=== PATIENT | male | born 1955 | race Caucasian/White ===

== ENCOUNTER → 2021-03-20 02:58 | Outpatient (CLI) | payer MEDICARE, SELFPAY ==
[2021-03-20 20:27] LABS: SARS-CoV-2 RNA PCR Positive
== END ==
PROVIDERS: PCP Internal Medicine; Visit Provider Surgery
DX: U07.1 COVID-19 (principal); Z01.812 Encounter for preprocedural laboratory examination
CPT/HCPCS: C9803; U0003; U0005

== ENCOUNTER → 2021-07-14 00:37 | Outpatient (CLI) | payer MEDICARE, SELFPAY ==
[2021-07-14 21:23] LABS: SARS-CoV-2 RNA PCR Negative
== END ==
PROVIDERS: PCP Internal Medicine; Visit Provider Surgery
DX: Z01.812 Encounter for preprocedural laboratory examination (principal); Z20.822 Contact with and (suspected) exposure to COVID-19
CPT/HCPCS: C9803; U0003; U0005

== ENCOUNTER 2021-07-18 01:00 | Day surgery (SDC) | payer MEDICARE, SELFPAY ==
[2021-03-15 15:26] VITALS: BMI 38.7
--- NOTE | 2021-07-06 14:17 | PC.NURSE ---
Report to the Outpatient Waiting Room, entrance under the green pavilion located off [facility], at time __0600 on date 07/18/21 . OR Time: _729 . - You and your visitor will be asked a series of questions to screen for COVID 19 for your protection. - A mask is required within the hospital. Preoperative COVID Testing Requirements: No COVID Test needed if: (proof is required; if not received patient will have Rapid Test prior to entry) - Patient has received COVID Vaccine at least 14 days prior to procedure date or COVID TESTING 07/14/21 @ 0845 - Patient has positive COVID test result within last 90 days of surgery date. COVID Test needed if above criteria is not met If not COVID vaccinated a COVID test must be conducted within 72 hours of surgery and patient is asked to isolate self from time of testing until procedure. You will go to the [employer] [facility] for your COVID testing. The [employer] [facility] site is located at the corner of [address] [facility]. You will only be called if COVID results are positive and your surgeon may reschedule your elective surgery date. Patients may have clear liquids (water, carbonated beverages, clear teas, apple juice) until 3 hours prior to surgery with a maximum of 20 ounces. - No food from midnight until time of surgery - Infants may have breast milk until 4 hours before surgery, infant formula 6 hours prior to surgery. - Children will be allowed to drink immediately following surgery. If applicable, please bring a bottle or sippy cup to assist with drinking. Juice, water, soda, and popsicles are readily available. For infants on formula, please bring formula the day of surgery. Pacifiers are allowed. Take the following medications with a SIP of water the morning of surgery: ___LEVOTHYROXINE Medications to discontinue per physician NONE Date to take last dose Please no make-up, nail montenegrin, hairspray, perfume, deodorant, or body powder the day of surgery. No jewelry (including any body piercings) or valuables the day of surgery, leave them at home. Please take a shower or bath the night before, or the morning of, surgery with an antibacterial soap. Wear comfortable, loose fitting clothing. Children are encouraged to wear pajamas. - Jewelry must be removed prior to entering the operating room. Rings and piercings that are not removed may be cut off. - The hospital will not accept responsibility for valuables. - Please leave all valuables, including medications, at home the day of surgery. HIBICLENS SHOWER MORNING OF SURGERY If you are going home after surgery, a licensed restaurant delivery driver must drive you home. - NO public transportation without another adult. - We recommend that an adult stay with you for 24 hours following discharge. - We also recommend that you do not drive, make important decision, drink alcoholic beverages, or take any drugs that were not prescribed by your health care provider for at least 24 hours after your discharge time. For Pediatric surgeries, we recommend two adults accompany the child home (only one inside the building at this time). One visitor will be allowed to accompany the patient into the hospital. Patients visitor will be instructed to remain with patient at all times or leave the building. We will allow the visitor to come back to the postoperative area when patient is ready. Follow any additional instructions given to you from your surgeon. Telephone instructions given to __PATIENT and asked if any additional questions and then verbalized understanding. Patient advised to call surgeon office or pre surgery nurse liaison [phone] if any additional questions.
[2021-07-06 14:19] VITALS: BMI 37.1
--- NOTE | 2021-07-16 07:50 | PM.SD2 ---
Same Day Admit/Disch: HPI History of Present Illness Chief complaint: Umb Hernia Narrative: Ralph Frank is a 66 year old male With an umbilical hernia for at least 4 years. This has been getting larger and the skin over the hernia has become discolored. It is painful when he does any type of heavy activity. He was seen in the office and is scheduled now for umbilical hernia repair with mesh. [facility] Past Medical History Medical History (Updated 07/18/21 @ 08:35 by David Perkins MD) Hyperlipidemia Hypertension Snoring Thyroid disorder Surgical History Surgical History (Updated 07/18/21 @ 07:07 by Jean Paul Tidwell MD) History of knee replacement 2019 [facility] History of shoulder surgery Family History Family History Father Heart attack Mother Heart disease Sibling Diabetes mellitus Hypertension Social History Social History Smoking status: Never smoker Second hand tobacco smoke exposure: No Alcohol intake: current Drinks per week: 12 Alcohol use details: Socially Substance use: never Living arrangements: with family Additional living arrangements comments: Patient lives with , stepson & stepson's daughter Gender identity (if verbalized by the patient): Male Sexual Orientation (if Verbalized by the Patient): Straight or Heterosexual Spiritual care concerns: No Same Day Admit/Disch: Med Pre-admit Medications Home Medications Medication Instructions Recorded Confirmed Type levothyroxine 137 mcg capsule 137 mcg PO QAM 02/01/21 07/18/21 History lisinopril 20 mg tablet 20 mg PO QAM 02/01/21 07/18/21 History rosuvastatin 10 mg tablet 10 mg PO QAM 02/01/21 07/18/21 History aspirin 81 mg PO DAILY 07/06/21 07/18/21 History hydrocodone-acetaminophen 1 - 2 tablet PO Q6H PRN #10 tablet 07/18/21 Rx ibuprofen 600 mg PO Q6H PRN #14 tablet 07/18/21 Rx Exam Const: General: comfortable, no acute distress, alert and awake HENMT: Head: normocephalic and atraumatic Mouth: Yes Normal oral and palatal mucosa present Eyes: Conjunctivae: conjunctivae normal Pupils: Equal, round and reactive pupils present EOM: EOMs intact bilaterally Neck: Neck: normal visual inspection, no lymphadenopathy and nontender Resp: Effort & Inspection: normal respiratory effort Auscultation: clear to auscultation bilaterally Cardio: Rate: regular rate Rhythm: regular rhythm Heart sounds: no gallops, no murmurs and no rubs GI: Inspection: non-distended, obesity, visible herniation ( Umbilical with discolored overlying skin) and other ( rectus diastasis) GI Palp: Yes Soft to palpation, No Tenderness to palpation present (GI), No Hepatomegaly present, No Splenomegaly present and Yes Hernia present ( large reducible umbilical hernia) Skin: Lesions: no lesions Rashes: no rashes Neuro: General: no focal motor deficits and CN's II-XI intact bilaterally Cranial nerves: Yes Equal, round and reactive pupils present, Yes Bilaterally intact EOM present, Yes facial symmetry and Yes Midline tongue present Speech: normal speech Motor exam (neuro): 5/5 motor strength present throughout and Motor abnormalities not present Extrem: General: no clubbing, cyanosis or edema and edema Psych: Affect: normal affect Thought process: Normal thought process present Insight: Good insight present (Psych) DS: Summary Time Spent with Patient Time attestation: Total time spent providing and/or coordinating discharge services: DS: Admitting Diagnosis Discharge Date 07/18/2021 Admitting Diagnosis reducible umbilical hernia- plan to repair under anesthesia as an outpatient with mesh. The procedure the risks the benefits have been discussed. All questions were answered. He understands and agrees to go ahead. morbid obesity essential hypertension DS: Discharge Shefali
[2021-07-18 06:12] VITALS: BMI 37.0
[2021-07-18 06:13] VITALS: BP 142/73; PULSE 68; RESP 18; TEMP 36.8; O2SAT 97
--- NOTE | 2021-07-18 07:03 | P.PNAN_ITS ---
Anes - Initial Pre Proc Eval Procedure: Operation Date: 07/18/21 07:30 Proposed Procedures p Umbilical Hernia Repair with Mesh - David Perkins MD Date/Time: 07/18/21 07:03 Surgeon: David Perkins MD Pre Op Diagnosis: Umb Hernia Patient Data Age: 66 Gender: M Height: 1.83 m Weight: 124.1 kg Last Vital Signs Temp 36.8 C 07/18/21 06:13 Pulse 68 07/18/21 06:13 Resp 18 07/18/21 06:13 BP 142/73 H 07/18/21 06:13 Pulse Ox 97 07/18/21 06:13 Allergies Allergy/AdvReac Type Severity Reaction Status Date / Time No Known Allergies Allergy Verified 07/18/21 06:05 Home Medications Medication Instructions Recorded Confirmed Type levothyroxine 137 mcg capsule 137 mcg PO QAM 02/01/21 07/18/21 History lisinopril 20 mg tablet 20 mg PO QAM 02/01/21 07/18/21 History rosuvastatin 10 mg tablet 10 mg PO QAM 02/01/21 07/18/21 History aspirin [Adult Low Dose Aspirin] 81 mg PO DAILY 07/06/21 07/18/21 History Patient hx anesthesia problems: none Family hx anesthesia problems: none Results Review: All pre-operative results and documents have been reviewed as part of the pre-operative evaluation. [facility] Past Medical History Medical History (Updated 07/18/21 @ 07:07 by Jean Paul Tidwell MD) Hyperlipidemia Hypertension Snoring Thyroid disorder Surgical History Surgical History (Updated 07/18/21 @ 07:07 by Jean Paul Tidwell MD) History of knee replacement 2019 [facility] History of shoulder surgery Family History Family History Father Heart attack Mother Heart disease Sibling Diabetes mellitus Hypertension Social History Social History Smoking status: Never smoker Second hand tobacco smoke exposure: No Alcohol intake: current Drinks per week: 12 Alcohol use details: Socially Substance use: never Living arrangements: with family Additional living arrangements comments: Patient lives with , bharathion & stepson's daughter Spiritual care concerns: No Anes - Eval Final PreProcedure Day of Procedure 07/18/21 07:03 Patient weight: obese Heart: regular rate and rhythm Lungs: clear to auscultation Airway: Mallampati scale class II Neurological: alert and oriented Last oral intake: >/= 8 hours ASA classification: III Emergent: no Anesthetic plan: proceed Anesthesia type and monitoring: general GIVS and standard monitoring Results Review: All pre-operative results and documents have been reviewed as part of the pre-operative evaluation. Informed Consent: The patient's anesthetic plan and its attendant risks and benefits were discussed with the patient/family/POA. Questions were solicited and answers provided to the satisfaction of the patient/family/POA.
[2021-07-18] MEDS: LACTATED RINGERS 1,000 ML 30 ML IV CONT (07:04)
[2021-07-18] MEDS: KETOROLAC 15 MG/ML VIAL (*BKC) IV PUSH (07:05)
[2021-07-18] MEDS: ACETAMINOPHEN 500 MG TABLET 1000 MG PO (07:05)
--- NOTE | 2021-07-18 07:17 | WPDHPUPDATE1 ---
History and Physical Update Update Date/Time: 07/18/21 07:17 History and Physical has been reviewed, including an updated exam of the patient. There are NO changes in the patient's condition. Risks, benefits, and alternatives have been discussed and questions answered. Patient agrees to proceed with procedure.
[2021-07-18] MEDS: ceFAZolin 3 GM/D5W 100 ML 100 ML IVPB (07:26)
[2021-07-18] MEDS: BUPIVACAINE/EPINEPHRINE 0.25% 50 ML VIAL 60 ML INFILTRATE (07:47)
--- NOTE | 2021-07-18 08:23 | W.PM.PROC2 ---
Procedure Note - Detailed Date of Procedure 07/18/21 Pre-op Diagnosis Umb Hernia Post-op Diagnosis Same Procedure Performed Repair ventral hernia with Ventralex ST underlay mesh Surgeon David Perkins MD Track Car Operator Radu WYNNE Anesthesia General (G IV S) and Local (0.25% Marcaine with epinephrine) Indications Patient has a fairly large reducible umbilical hernia which is occasionally painful. The overlying skin is somewhat dusky. He is taken to surgery now for repair. Findings Patient had a 1.5 x 1 cm defect. Description of Procedure Patient was taken to surgery and anesthesia was introduced. The abdomen is prepped and draped. The proposed incision was marked along the upper margin of the umbilicus. Local anesthetic was infiltrated into the skin and the deeper subcutaneous. Incision was made dissection was carried down through the subcutaneous. The hernia sac was found. The hernia sac was carefully dissected free from the remaining subcutaneous tissue as well as from the umbilical skin. I dissected circumferentially around the hernia sac and the hernia defect. I then infiltrated additional local into the fascia and the neck of the hernia sac circumferentially. I then excised the hernia sac at its neck. The sac was discarded. I checked in the hernia defect and found no nearby abdominal wall defects. A 6.[address] mesh was chosen. This was placed in the defect and centered symmetrically. Cranial and caudal transfascial sutures of 0 Ethibond were then placed. These were placed in such a fashion that when tied, they advance the edges of the hernia defect towards 1 another. Tying this suture had the desired effect. The securing straps were then removed. Right and left lateral transfascial sutures were then placed to secure the mesh in this direction. Finally a [id number] mattress suture of 0 Ethibond was placed to close the defect. This suture also incorporated a bit of mesh. I infiltrated additional local all around the repair. I then sutured the umbilical skin to the fascia with 3-0 Vicryl sutures. Some subcutaneous 3-0 Vicryl sutures were placed. Subcuticular interrupted 4-0 Vicryl skin stitches were placed. Finally the skin was closed with a running 4-0 Monocryl skin suture. The wound was dressed with Exofin surgical adhesive. The patient was awakened and taken to recovery in good condition. Sponge and needle counts were correct x2. Implants 6.[address] underlay mesh Estimated Blood Loss -5 Drains No Packing No Pathology None sent Complications No immediate complications Condition Stable Disposition Same day
[2021-07-18 08:25] VITALS: BP 124/68; PULSE 84; RESP 20; O2SAT 96
[2021-07-18 08:55] VITALS: BP 131/85; PULSE 70; RESP 16
[2021-07-18 09:10] VITALS: BP 145/76; PULSE 67; RESP 16
== END 2021-07-18 09:20 | disposition home or self-care (01) ==
PROVIDERS: PCP Internal Medicine; Visit Provider Surgery
PROC: (CPT 49585; principal; 2021-07-18 07:30)
DX: K42.9 Umbilical hernia without obstruction or gangrene (principal); I10 Essential (primary) hypertension; E78.5 Hyperlipidemia, unspecified; E07.9 Disorder of thyroid, unspecified; Z79.82 Long term (current) use of aspirin; E66.9 Obesity, unspecified; Z68.37 Body mass index [BMI] 37.0-37.9, adult
CPT/HCPCS: 49585; A9270; C1781; C9803; J0690; J1885; J2704; J3010; J7120; U0003; U0005

== ENCOUNTER 2022-02-12 09:25 | Outpatient (CLI) | payer MEDICARE, SELFPAY ==
--- NOTE | ~2022-02-12 | NM_ITS ---
EXAMINATION: NM stress w perf spect multi DATE: 02/12/2022 11:44 INDICATION: Stable angina pectoris. TECHNIQUE: Rest images were obtained following intravenous administration of 10.0 mCi Tc99m tetrofosm in (Myoview). The patient performed an exercise activity. At peak exercise, 32.3 mCi Tc99m tetrofosmi n (Myoview) was administered intravenously, and stress images were obtained. Data was reconstructed i nto short axis and horizontal and vertical long axis SPECT images. Gated SPECT images were also obtai kaushik. COMPARISON: None. FINDINGS: There is a large, severe, predominantly reversible perfusion defect involving anterior, ant erolateral, and inferolateral carter of left ventricle. There is a small, mild, fixed perfusion defect involving mid anterolateral segment of left ventricle, consistent with infarct. There is no segmenta l wall motion abnormality. Left ventricular ejection fraction measures 54%. IMPRESSION: 1. Large area of severe ischemia involving anterior, anterolateral, inferolateral carter of left ventr icle. 2. Small area of mild infarct involving mid anterolateral segment of left ventricle. 3. Normal left ventricular ejection fraction measuring 54%. Reviewed, dictated and finalized at location A. IMPRESSION: 1. Large area of severe ischemia involving anterior, anterolateral, inferolater al carter of left ventricle. 2. Small area of mild infarct involving mid anterolateral segment of left ventr icle. 3. Normal left ventricular ejection fraction measuring 54%.
--- NOTE | 2022-02-12 09:31 | EST_ITS ---
Patient Info Name: Ralph Frank Age: 66 years : 1955 Gender: Male Ht: 72 in Wt: 264 lbs BSA: 2.51 m2 Exam Date: 02/12/2022 10:33 AM Exam Location: [facility] Stress Patient Status: Outpatient Admit Date: 02/12/2022 Staff Ordering Physician: Solomon Gray MD Attending Provider: Solomon Gray MD Exercise Technologist: Carlie Berg RDCS Exercise Physician: Abimael Espinoza DO Exam Type: CA stress test treadmill w NM Study Info Indications I20.8 - Other forms of angina pectoris A nuclear stress test was performed. Summary 1. 1. Abnormal Sebas exercise stress test for ischemic ST changes by ECG criteria. 2. 2. Reduced functional capacity, achieving 7 METs of workload. 3. 3. Baseline hypertension. 4. 4. Appropriate HR response to exercise. 5. 5. Appropriate HR recovery at 1 minute post exercise. 6. 6. Nuclear scan to follow and will be reported separately. Please correlate with it. 7. 7. Patient informed of the above results. 8. 8. Dr. Gray informed of the above results. Protocol: Sebas Stress ECG Details Stage: REST Duration (min): 1 min : 7 sec Speed (mph): 0.0 Grade (%): 0 HR (bpm): 68 SBP (mmHg): 147 DBP (mmHg): 75 METS: --- Stage: REST Duration (min): 9 min : 32 sec Speed (mph): 0.0 Grade (%): 0 HR (bpm): 69 SBP (mmHg): 147 DBP (mmHg): 75 METS: --- Stage: STAGE 1 Duration (min): 1 min : 0 sec Speed (mph): 1.7 Grade (%): 10 HR (bpm): 97 SBP (mmHg): 147 DBP (mmHg): 75 METS: --- Stage: STAGE 1 Duration (min): 2 min : 0 sec Speed (mph): 1.7 Grade (%): 10 HR (bpm): 111 SBP (mmHg): 147 DBP (mmHg): 75 METS: --- Stage: STAGE 1 Duration (min): 3 min : 0 sec Speed (mph): 1.7 Grade (%): 10 HR (bpm): 123 SBP (mmHg): 155 DBP (mmHg): 75 METS: --- Stage: STAGE 2 Duration (min): 1 min : 0 sec Speed (mph): 2.5 Grade (%): 12 HR (bpm): 128 SBP (mmHg): 155 DBP (mmHg): 75 METS: --- Stage: STAGE 2 Duration (min): 2 min : 0 sec Speed (mph): 2.5 Grade (%): 12 HR (bpm): 136 SBP (mmHg): 154 DBP (mmHg): 79 METS: --- Stage: STAGE 2 Duration (min): 2 min : 9 sec Speed (mph): 2.5 Grade (%): 12 HR (bpm): 139 SBP (mmHg): 154 DBP (mmHg): 79 METS: --- Stage: RECOVERY Duration (min): 0 min : 50 sec Speed (mph): 0.0 Grade (%): 0 HR (bpm): 131 SBP (mmHg): 154 DBP (mmHg): 79 METS: --- Stage: RECOVERY Duration (min): 1 min : 50 sec Speed (mph): 0.0 Grade (%): 0 HR (bpm): 103 SBP (mmHg): 185 DBP (mmHg): 82 METS: --- Stage: RECOVERY Duration (min): 2 min : 50 sec Speed (mph): 0.0 Grade (%): 0 HR (bpm): 93 SBP (mmHg): 185 DBP (mmHg): 82 METS: --- Stage: RECOVERY Duration (min): 3 min : 50 sec Speed (mph): 0.0 Grade (%): 0 HR (bpm): 98 SBP (mmHg): 202 DBP (mmHg)
== END 2022-02-12 09:26 | disposition home or self-care (01) ==
PROVIDERS: PCP Family Medicine; Visit Provider Family Medicine
DX: I20.8 Other forms of angina pectoris (principal); I10 Essential (primary) hypertension
CPT/HCPCS: 78452; 93017; A9502

== ENCOUNTER 2022-02-19 01:27 | Day surgery (SDC) | payer MEDICARE, SELFPAY ==
[2022-02-18 14:30] VITALS: BMI 39.2
[2022-02-19] VITALS (9 sets, daily range): BP systolic 122–140; BP diastolic 65–89; PULSE 63–85; RESP 12–19; TEMP 36.6; O2SAT 95–98; BMI 35.8
[2022-02-19 09:06] LABS: Basophils Absolute Auto 0.1 K/mm3 (0.0-0.1); Eosinophils Absolute Auto 0.2 K/mm3 (0-0.3); Eosinophils Percent Auto 3.5 % (0-4.4); Hematocrit 46.2 % (42.0-52.0); Hemoglobin 15.3 g/dL (14.0-18.0); Immature Granulocyte Absolute 0.02 K/mm3 (0.00-0.031); Immature Granulocyte Percent A 0.3 % (0-0.5); Lymphocytes Absolute Auto 1.48 K/mm3 (0.9-3.2); Lymphocytes Percent Auto 21.5 % (18.3-44.2); Mean Corpuscular HGB Conc 33.1 g/dl (32-36); Mean Corpuscular Hemoglobin 32.4 pg (26-34); Mean Corpuscular Volume 97.9 fl (80-100); Mean Platelet Volume 10.3 fl (7.4-10.4); Monocytes Absolute Auto 0.5 K/mm3 (0.1-0.6); Neutrophils Absolute Auto 4.6 K/mm3 (1.3-6.7); Neutrophils Percent Auto 66.7 % (45.5-73.1); Platelet Count Result 163 k/mm3 (150-375); Red Blood Count 4.72 M/mm3 (4.6-6.20); Red Cell Distribution Width 12.6 % (11.5-14.5); White Blood Count 6.9 K/mm3 (4.5-10.0)
[2022-02-19 09:12] LABS: Anion Gap 9 mmol/L (8-16); Blood Urea Nitrogen 18 mg/dL (9-20); Calcium 8.6 mg/dL (8.4-10.2); Carbon Dioxide 23 mmol/L (22-30); Chloride 105 mmol/L (98-107); Estimated CRCL calculation 86 ml/min; Estimated Glomerular Filt Rate > 60; Glucose 136 mg/dL (65-110); Potassium 3.9 mmol/L (3.4-5.0); Sodium 137 mmol/L (137-145)
[2022-02-19] MEDS: CLOPIDOGREL BISULFATE 300 MG TABLET 600 MG PO (09:57)
[2022-02-19] MEDS: SODIUM CHLORIDE 0.9% IV 500 ML 100 ML IV CONT (09:58)
--- NOTE | 2022-02-19 10:05 | WPDHPUPDATE1 ---
History and Physical Update Update Date/Time: 02/19/22 10:05 History and Physical has been reviewed, including an updated exam of the patient. There are NO changes in the patient's condition. Risks, benefits, and alternatives have been discussed and questions answered. Patient agrees to proceed with procedure.
--- NOTE | 2022-02-19 10:06 | WPDMODSED ---
Moderate Sedation Note-Pt Data Patient Data Diagnosis: Anginal symptoms in the setting of abnormal stress test Present Complaint: Anginal symptoms in the setting of abnormal stress test Procedure to be performed/Plan: Coronary angiography, LHC, +/- PCI Allergies Allergy/AdvReac Type Severity Reaction Status Date / Time hydrocodone Allergy Intermediate Nausea Verified 02/12/22 12:01 Home Medications Medication Instructions Recorded Confirmed Type aspirin 81 mg tablet 81 mg PO DAILY 07/06/21 02/19/22 History levothyroxine 150 mcg tablet See Rx Instructions .Route 01/08/22 02/19/22 Rx .COMPLEX #90 tabs lisinopril 20 mg tablet 20 mg PO DAILY 02/18/22 02/19/22 History naproxen 500 mg tablet 500 mg PO BID PRN Pain 02/18/22 02/19/22 History rosuvastatin 10 mg tablet 20 mg PO DAILY 02/18/22 02/19/22 History Current Medications: Active Medications Sodium Chloride (Normal Saline Iv) 500 mls @ 100 mls/hr IV CONT .Q5H ELEONORA Last Admin: 02/19/22 09:58 Dose: 100 mls/hr Sedation/Anesthesia: No previous sedation/anesthesia problems (including family history). [facility] Past Medical History Medical History Abnormality of heart beat Arrhythmia Arthritis Chest pain DJD of right shoulder Hearing loss Hyperlipidemia Hypertension Preoperative clearance Sleep disorder Snoring Stable angina Thyroid disorder Wears glasses Surgical History Surgical History History of knee replacement [address] [place] [address] History of shoulder surgery History of ventral hernia repair Repair ventral hernia with Ventralex ST underlay mesh 07/18/21. Family History Family History Father Heart attack Mother Heart disease Sibling Diabetes mellitus Hypertension Other Arthritis High cholesterol Kidney disorder Social History Social History Smoking status: Never smoker Second hand tobacco smoke exposure: No Alcohol intake: former Drinks per week: 12 Alcohol use details: Socially Substance use: never Substance use type: does not use Living arrangements: with family Additional living arrangements comments: Patient lives with , stepson & stepson's daughter Gender identity (if verbalized by the patient): Male Sexual Orientation (if Verbalized by the Patient): Straight or Heterosexual Spiritual care concerns: No Mod Sed Physical Exam Physical Exam Pre Procedural Exam: Normal: Appearance, Lungs, Heart Rate, Heart Rhythm, Neuro Exam, Abdomen, Extremities and Skin Hours since solid foods: 12 Hours since liquid intake: 10 Mallampati Classification: class III Internal Medicine - PN: Obj Da Vital Signs Vital Signs: Vital Signs - 24 hr 02/19/22 08:55 Temperature 36.6 C Pulse Rate 63 Respiratory Rate 16 Blood Pressure 128/89 Pulse Oximetry 97 Oxygen Delivery Room Air Meds/Results Medications: Active Medications Generic Name Dose Route Start Last Admin Trade Name Freq PRN Reason Stop Dose Admin Sodium Chloride 500 mls @ 100 mls/hr 02/19/22 08:00 02/19/22 09:58 Normal Saline Iv IV CONT 100 mls/hr .Q5H ELEONORA Administration Labs CBC & Chem 7: 02/19/22 08:45 02/19/22 08:45 Labs: Laboratory Results - last 24 hr 02/19/22 02/19/22 08:45 08:45 WBC 6.9 RBC 4.72 Hgb 15.3 Hct 46.2 MCV 97.9 MCH 32.4 MCHC 33.1 RDW 12.6 Plt Count 163 MPV 10.3 Immature Gran % (Auto) 0.3 Neut % (Auto) 66.7 Lymph % (Auto) 21.5 Carver % (Auto) 7.0 Eos % (Auto) 3.5 Baso % (Auto) 1.0 Lymph # (Auto) 1.48 Carver # (Auto) 0.5 Eos # (Auto) 0.2 Baso # (Auto) 0.1 Abs Immat Gran (auto) 0.02 Absolute Neuts (auto) 4.6 Absolute Nucleated RBC 0.0 Nucleated RBC % 0.0 Sodium 137 Potass
--- NOTE | 2022-02-19 10:07 | WPDCARDPROC ---
Cardiac Cath Procedure Note Date of procedure:: 02/19/22 Performing physician:: CATHETERIZATION LABORATORY REPORT Procedure Date: 02/19/2022 Manager Mobility: Artie Pate M.D., [facility]? Referring Physician: Dr. Espinoza Anesthesia: Versed and Fentanyl were ordered and given in my presence at 10:19, procedure ended at 10:33. Supervision of nurse monitored moderate sedation with Versed and Fentanyl was provided for 14 minutes. Total of Versed 2mg and Fentanyl 50mcg were administered by Information Systems Director RN. 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 MPI showed a large area of severe ischemia involving the anterior, anterolateral, inferolateral carter of left ventricle with a small area of mild infarct involving mid anterolateral segment of left ventricle. All risks, benefits and alternatives to left heart catheterization with or without percutaneous coronary intervention was discussed at length with the patient. Risk of complications including but not limited to bleeding, infection, arrhythmia, stroke, worsening kidney function, blood loss, groin hematoma, limb loss, emergency coronary artery bypass grafting, and even were discussed with the patient and all questions were answered. The patient understood and wished to proceed. Time out called, patient name, date of , medical record number, allergies, procedure performed, identify Manager Mobility, patient and staff member concurred with accurate data, procedure carried on. Findings: LEFT HEART CATHETERIZATION FINDINGS: 1. Left main: The left main coronary artery is widely patent without any significant obstructive disease. 2. Left anterior descending: Calcifications seen in the proximal LAD. The LAD has mild diffuse disease without any significant obstructive disease. There is a subtotally occluded diagonal branch that fills distally from [id number] collaterals. There is a second diagonal branch that is occluded. 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 3. Left circumflex: The ostium of the LCX has an 80% stenosis. The proximal LCX has a 90-99% angiographic stenosis with a tandem 90% stenosis. The mid and distal LCX has mild diffuse disease. There is an occluded OM vessel that has retrograde filling from [id number]-[id number]-iuno collaterals and [id number]-[id number]-dejj collaterals. 4. Right coronary artery: The RCA is the dominant vessel. The RCA has mild diffuse disease without any significant obstructive angiographic disease. 5. Left ventricle: A. End-diastolic pressure 8mmHg. B. LV gram deferred. C. No significant gradient across aortic valve on catheter pullback. Description of Procedure: Informed consent signed and placed in the chart. Patient transferred to rn cardiac cath room. Prepped and draped in usual sterile fashion. 2% lidocaine injected subcutaneously in right wrist area. 22-gauge venipuncture catheter used to access the right radial artery with the Seldinger technique. 6-FR slender sheath placed in right radial artery. Nitroglycerine and Cardene was given intraarterial through the sheath. Versacore wire advanced under fluoroscopy 5F Tig 4 diagnostic catheter engaged Left Main Coronary Artery. 5F Tig 4 diagnostic catheter engaged Right Coronary Artery Multiple orthogonal angiogram obtained and reviewed 5F Tig 4 diagnostic catheter crossed aortic valve to obtain LVEDP, LV angiogram deferred. Hemostasis was achieved by application of TR band. ? Assessment: Significant obstructive ostial-proximal L
== END 2022-02-19 13:19 | disposition home or self-care (01) ==
PROVIDERS: PCP Family Medicine; Visit Provider Internal Medicine
PROC: 4A023N7 Measurement of Cardiac Sampling and Pressure, Left Heart, Percutaneous Approach (ICD-10-PCS; CPT 93452; principal; 2022-02-19 09:30)
DX: I25.10 Atherosclerotic heart disease of native coronary artery without angina pectoris (principal); R94.39 Abnormal result of other cardiovascular function study; I10 Essential (primary) hypertension; E78.5 Hyperlipidemia, unspecified; E07.9 Disorder of thyroid, unspecified; Z79.82 Long term (current) use of aspirin
CPT/HCPCS: 36415; 80048; 85025; 93458; A9270; C1769; C1887; C1894; J1644; J2250; J3010; J7040

== ENCOUNTER 2022-07-18 09:45 | Outpatient (RCR) | payer MEDICARE, SELFPAY ==
[2022-04-30 11:53] VITALS: PULSE 63
== END 2022-07-18 11:15 | disposition home or self-care (01) ==
LOC: ANHCPREHAB 09:45
PROVIDERS: PCP Family Medicine; Visit Provider Internal Medicine Cardiovascular Disease
DX: Z95.5 Presence of coronary angioplasty implant and graft (principal)
CPT/HCPCS: 93798

== ENCOUNTER 2022-09-16 14:15 | Outpatient (CLI) | payer MEDICARE, SELFPAY ==
--- NOTE | ~2022-09-16 | CT_ITS ---
EXAMINATION: CT abdomen pelvis w con DATE: 09/16/2022 14:52 INDICATION: Epigastric abdominal pain for one week. Vomiting. TECHNIQUE: Computed tomography (CT) of the abdomen and pelvis was performed with 100 CC Omnipaque 350 intravenous contrast. Automated exposure control and iterative reconstruction technique were employe d. Exam dose: 1524.94 mGy-cm total exam DLP. COMPARISON: None. FINDINGS: There is minimal discoid atelectasis or scarring at the lung bases. Heart size is within up per limits of normal. No pericardial or pleural effusion. The liver, gallbladder and bile ducts are unremarkable. There is a 12 mm lucency along the inferomedi al margin of the spleen, likely benign. No splenomegaly. There are couple of pinpoint calcifications in the pancreatic head which may indicate mild chronic pa ncreatitis. No pancreatic mass lesion or pancreatic duct dilatation is noted. Normal morphology of the adrenal glands. There is an approximately 2 mm upper pole nonobstructing right renal calculus and approximately 2.5 m m and 6 mm nonobstructing left renal calculi. Normal appendix. No bowel obstruction or bowel wall thickening, pneumatosis or intraperitoneal free a ir. Mild prostate calcification. There is calcification of the abdominal aorta and origins of the renal arteries. No abdominal aortic aneurysm. No intraperitoneal or retroperitoneal or pelvic mass lesion or adenopathy or ascites. Degenerative spurring of the sacroiliac joints. Degenerative spurring of the lower thoracic spine. Degenerative change at the apophyseal joints of the lumbar spine with associated grade 1 anterolisthe sis at L4-5. Severe degenerative disc disease at L5-S1. Bilateral hip osteoarthritis. IMPRESSION: Benign 12 mm splenic lucency Mild bilateral nonobstructive nephrolithiasis Normal appendix Reviewed, dictated and finalized at [facility]. Reviewed, dictated and finalized at [facility].
[2022-09-16 14:44] LABS: Estimated Glomerular Filt Rate 60
== END 2022-09-16 14:16 | disposition home or self-care (01) ==
PROVIDERS: PCP Family Medicine; Visit Provider Family Medicine
DX: N20.0 Calculus of kidney (principal)
CPT/HCPCS: 74177; Q9967